=== PATIENT | female | born 1955 | race Caucasian/White ===

== ENCOUNTER 2022-06-25 06:53 | Day surgery (SDC) | payer BC, MEDICARE ==
[2022-06-21 12:38] VITALS: BMI 23.3
[~2022-06-25 06:53] MED LIST: LACTATED RINGERS 1,000 ML IV SCH
[2022-06-25 07:33] VITALS: TEMP 97.8
[2022-06-25] MEDS ORDERED: PROPOFOL 10 MG/ML 20 ML VIAL IV ONE (08:28)
[2022-06-25] MEDS ORDERED: LIDOCAINE 2% INJ 20 MG/ML (2 ML VIAL) ONE (08:28)
--- NOTE | 2022-06-25 08:51 | P.PCN ---
Date of Procedure: 06/25/22 Procedure(s) Performed: BRIEF HISTORY: Patient is a 67-year-old pleasant white female scheduled for an elective colonoscopy as a part of screening for colorectal neoplasia. PROCEDURE PERFORMED: Colonoscopy. PREOPERATIVE DIAGNOSIS: Screening for colon cancer. IV sedation per Anesthesia. PROCEDURE: After informed consent was obtained, the patient, was brought into the endoscopy unit. IV sedation was administered by Anesthesia under continuous monitoring. Digital rectal examination was normal. Initially the Olympus CF-160 flexible video colonoscope was then inserted in the rectum, gradually advanced into the cecum without any difficulty. Careful examination was performed as the scope was gradually being withdrawn. Ileocecal valve and the appendiceal orifice were visualized and appeared normal. Prep was excellent. Mucosa of the cecum, ascending colon, transverse colon, descending colon, sigmoid colon, and rectum appeared normal. Scattered sigmoid diverticulosis. Retroflexion was performed in the rectum and no lesions were seen. The patient tolerated the procedure well. IMPRESSION: Normal-appearing colon from rectum to cecum with no evidence of colorectal neoplasia. Scattered sigmoid diverticulosis. RECOMMENDATIONS: Findings of this examination were discussed with the patient as well as a family. She was advised to have a repeat screening colonoscopy in 10 years..
[2022-06-25 09:02] VITALS: RESP 16
[2022-06-25 09:17] VITALS: BP 147/80; PULSE 53
== END 2022-06-25 09:31 | disposition home or self-care (01) ==
LOC: ORWHC2ENDO 06:53
PROVIDERS: ATTEND Internal Medicine Gastroenterology
DX: Z12.11 Encounter for screening for malignant neoplasm of colon (principal); K57.30 Diverticulosis of large intestine without perforation or abscess without bleeding; I10 Essential (primary) hypertension; Z79.899 Other long term (current) drug therapy; Z88.4 Allergy status to anesthetic agent
CPT/HCPCS: J2704; J2001; G0121; 45378

== ENCOUNTER → 2023-07-02 | Outpatient (CLI) | payer MEDICARE ==
--- NOTE | 2023-07-02 15:54 | US ---
EXAMINATION TYPE: US carotid duplex BILAT DATE OF EXAM: 07/02/2023 COMPARISON: NONE CLINICAL INDICATION: Female, 68 years old with history of R09.89 OTHER SPECIFIED SYMPTOMS; bruit TECHNIQUE: Carotid duplex ultrasound examination. Indirect Doppler criteria was utilized. FINDINGS: EXAM MEASUREMENTS: RIGHT: Peak Systolic Velocity (PSV) cm/sec ----- Right CCA: 84.5 ----- Right ICA: 98.7 ----- Right ECA: 69.5 ICA/CCA ratio: 1.8 RIGHT: End Diastole cm/sec ----- Right CCA: 20.8 ----- Right ICA: 20.1 ----- Right ECA: 11.7 LEFT: Peak Systolic Velocity (PSV) cm/sec ----- Left CCA: 102 ----- Left ICA: 95.5 ----- Left ECA: 78 ICA/CCA ratio: .9 LEFT: End Diastole cm/sec ----- Left CCA: 27.3 ----- Left ICA: 31.2 ----- Left ECA: 7.15 VERTEBRALS (direction of flow): Right Vertebral: Antegrade Left Vertebral: Antegrade Rhythm: Normal WO[employer] NOTES: No significant stenosis seen IMPRESSION: 1. No significant flow-limiting stenosis. Criteria for Assigning % of Stenosis / Diameter reduction (Estimation based on the indirect measurements of the internal carotid artery velocities (ICA PSV). 1. Normal (no stenosis)=ICA PSV < 125 cm/s: ratio < 2.0: ICA EDV<40 cm/s. 2. Less than 50% stenosis=ICA PSV < 125 cm/s: ratio < 2.0: ICA EDV<40 cm/s. 3. 50 to 69% stenosis=ICA PSV of 125 to 230 cm/s: ration 2.0 ? 4.0: ICA EDV 40-100 cm/s. 4. Greater than 70% stenosis to near occlusion= ICA PSV > 230 cm/s: ratio > 4.0: ICA EDV > 100 cm/s. 5. Near occlusion= ICA PSV velocities may be low or undetectable: variable ratio and ICA EDV. 6. Total occlusion=unable to detect flow.
--- NOTE | 2023-07-03 08:06 | CA ---
Transthoracic Echo Report Name: Rebecca Fulton Age: 68 Gender: F : 1955 Exam Date: 07/02/2023 15:08 Exam Location: [facility] Ht (in): 64 Wt (lb): 145 Ordering Physician: Vince Mata MD Attending/Referring Phys: Teri Peña PAC [employer] [facility] Procedure CPT: Indications: R09.89 OTH SYMPTOMS AND SIGNS INVOLVING THE CIRC A Cardiac Hx: Technical Quality: Fair Contrast 1: Total Dose (mL): Contrast 2: Total Dose (mL): MEASUREMENTS (Male / Female) Normal Values 2D ECHO LV Diastolic Diameter PLAX 4.1 cm 4.2 - 5.9 / 3.9 - 5.3 cm LV Systolic Diameter PLAX 2.7 cm IVS Diastolic Thickness 0.9 cm 0.6 - 1.0 / 0.6 - 0.9 cm LVPW Diastolic Thickness 0.8 cm 0.6 - 1.0 / 0.6 - 0.9 cm LV Relative Wall Thickness 0.4 LVOT Diameter 2.0 cm Ascending Aorta Diameter 3.5 cm M-MODE Aortic Root Diameter MM 3.1 cm LA Systolic Diameter MM 2.4 cm LA Ao Ratio MM 0.8 AV Cusp Separation MM 2.0 cm DOPPLER AV Peak Velocity 136.2 cm/s AV Peak Gradient 7.4 mmHg AV Mean Velocity 96.4 cm/s AV Mean Gradient 4.1 mmHg AV Velocity Time Integral 25.4 cm LVOT Peak Velocity 94.5 cm/s LVOT Peak Gradient 3.6 mmHg LVOT Velocity Time Integral 18.0 cm LVOT Stroke Volume 54.2 cm??? LVOT Stroke Volume Index 31.8 ml/m??? LVOT Cardiac Index 2283.3 cm???/min???m??? AV Area Cont Eq vti 2.1 cm??? AV Area Cont Eq pk 2.1 cm??? Mitral E Point Velocity 47.6 cm/s Mitral A Point Velocity 80.4 cm/s Mitral E to A Ratio 0.6 MV Deceleration Time 187.4 ms LV E' Lateral Velocity 9.1 cm/s Mitral E to LV E' Lateral Ratio 5.2 LV E' Septal Velocity 6.3 cm/s Mitral E to LV E' Septal Ratio 7.5 TR Peak Velocity 232.7 cm/s TR Peak Gradient 21.7 mmHg Right Atrial Pressure 3.0 mmHg Pulmonary Artery Systolic Pressu 24.7 mmHg Right Ventricular Systolic Press 24.7 mmHg FINDINGS Left Ventricle Normal Left ventricular size, wall thickness, systolic function with no obvious regional wall motion abnormalities. Left ventricular ejection fraction is estimated at 55-60%. Right Ventricle Normal right ventricular size. Right Atrium Normal right atrial size. Left Atrium Normal left atrial size. Mitral Valve Structurally normal mitral valve. Mild mitral regurgitation. Aortic Valve Trileaflet aortic valve. No aortic regurgitation. Tricuspid Valve Structurally normal tricuspid valve. Mild tricuspid regurgitation. Pulmonic Valve Structurally normal pulmonic valve. Mild pulmonic regurgitation. Pericardium No pericardial effusion. Aorta Normal size aortic root and proximal ascending aorta. CONCLUSIONS Normal LV size, wall thickness and systolic function. Estimated LVEF 60-65%. No obvious regional wall motion abnormality. No significant valvular dysfunction. Overall normal chamber sizes. No pericardial effusion. No prior echo to compare with. Previewed by: Dr Stephane Saucedo (Electronically Signed) Final Date: 03 July 2023 08:05
== END | disposition home or self-care (01) ==
LOC: RADECHMAIN 14:50
PROVIDERS: ATTEND Family Medicine
DX: R01.1 Cardiac murmur, unspecified (principal); R09.89 Other specified symptoms and signs involving the circulatory and respiratory systems
CPT/HCPCS: 93306; 93880